=== PATIENT | male | born 1995 | race Hispanic/Latino ===

== ENCOUNTER 2020-08-20 03:21 | Observation (INO) | payer OTHER ==
[2020-08-20] MEDS ORDERED: ONDANSETRON 4 MG/2 ML INJ IV ONE (03:51)
[2020-08-20] MEDS ORDERED: SODIUM CHLORIDE 0.9% 1000 ML 1,000 ML IV ONE ×2 (03:51→05:47)
--- NOTE | 2020-08-20 03:57 | Emergency Department Report ---
HPI - General Chief Complaint: Medical Clearance Time Seen by Provider: 08/20/20 03:43 - HPI HPI: Room 24 The patient is a 25-year-old male present with a chief complaint of "depressive episode." The patient states he had a "depressive episode" which lead him to take ""many" shots of vodka. Patient states he took his normal psychiatric medication in addition to that he took 1 extra Effexor 75 mg stating that he thought it would make him feel happier. The patient states his friend called 911 because she was concerned about him. Patient denies suicidal ideation. Patient states he just wanted to "be out of the mental situation" he was then. When asked how he is feeling currently the patient states he just feels drunk but otherwise all right. ED Past Medical Hx - Past Medical History Previous Medical History?: Yes Hx Psychiatric Treatment: Yes (Anxiety, depression, OCD) Hx Asthma: Yes - Surgical History Past Surgical History?: No - Family History Family history: no significant - Social History Smoking Status: Never Smoker Substance Use Type: None (Denies illicit drug use), Alcohol (Occasional) ED Review of Systems ROS: Stated complaint: DRUG OD Other details as noted in HPI Constitutional: no symptoms reported Eyes: denies: eye pain ENT: denies: throat pain Respiratory: no symptoms reported Cardiovascular: denies: chest pain Endocrine: no symptoms reported Gastrointestinal: denies: abdominal pain Genitourinary: denies: dysuria Musculoskeletal: denies: back pain Neurological: denies: headache Psychiatric: depression. denies: suicidal thoughts Physical Exam - Physical Exam Vital Signs: Vital Signs 08/20/20 03:36 Temperature 98.1 F Pulse Rate 110 H Respiratory 20 Rate Blood Pressure 135/67 [Left] O2 Sat by Pulse 97 Oximetry Physical Exam: GENERAL: The patient is well-developed well-nourished male lying on stretcher not appearing to be in acute distress. [] HEENT: Normocephalic. Atraumatic. Extraocular motions are intact. Patient has moist mucous membranes. NECK: Supple. Trachea midline CHEST/LUNGS: Clear to auscultation. There is no respiratory distress noted. HEART/CARDIOVASCULAR: Regular. There is no tachycardia. There is no gallop rub or murmur. ABDOMEN: Abdomen is soft, nontender. Patient has normal bowel sounds. There is no abdominal distention. SKIN: There is no rash. There is no edema. There is no diaphoresis. NEURO: The patient is awake, alert, and oriented. The patient is cooperative. The patient has no focal neurologic deficits. The patient has normal speech MUSCULOSKELETAL: There is no evidence of acute injury. ED Course Vital Signs 08/20/20 03:36 Temperature 98.1 F Pulse Rate 110 H Respiratory 20 Rate Blood Pressure 135/67 [Left] O2 Sat by Pulse 97 Oximetry - Consultations Consultation #1: 08/20/20 05:13 Poison control called 08/20/20 05:35 Case discussed with poison control-given positive acetaminophen level with unknown time of ingestion they recommend for 21-hour treatment with Acetadote. Recommends drawing labs 3 hours prior to the completion of the third bag which includes acetaminophen level, AST, ALT and INR. They state in order to discontinue further Acetadote use the serum level should come back less than 10, AST and ALT should not be increasing and the INR should be less than 1.5 ED Medical Decision Making - Lab Data Result diagrams: 08/20/20 03:59 08/20/20 03:59 Laboratory Tests 08/20/20 08/20/20 08/20/20 03:59 03:59 03:59 WBC 8.7 RBC 4.38 Hgb 13.7 Hct 38.4 MCV 88 MCH 31 MCHC 36 H RDW 12.7 L Plt Count 248 Lymph % (Auto) 17.3 [place] % (Auto) 5.2 Eos % (Auto) 0.6 Baso % (Auto) 0.5 Lymph # (Auto) 1.5 [place] # (Auto) 0.5 Eos # (Auto) 0.1 Baso # (Auto) 0.0 Seg Neutrophils % 76.4 H Seg Neutrophils # 6.7 Sodium 141 Potassium 3.2 L Chloride 101.9 Carbon Dioxide 27 Anion Gap 15 BUN 9 Creatinine 0.9 Estimated GFR > 60 BUN/Creatinine Ratio 10 Glucose 123 H Calcium 10.3 H Total Bilirubin 0.20 AST 29 ALT 20 Alkaline Phosphatase 102 Total Protein 7.2 Albumin 4.8 Albumin/Globulin Ratio 2.0 Urine Color Urine Turbidity Urine pH Ur Specific [place] Urine Protein Urine Glucose (UA) Urine Ketones Urine Blood Urine Nitrite Urine Bilirubin Urine Urobilinogen Ur Leukocyte Esterase Urine WBC (Auto) Urine RBC (Auto) Salicylates < 0.3 L Urine Opiates Screen Urine Methadone Screen Acetaminophen Ur Barbiturates Screen Ur Phencyclidine Scrn Ur Amphetamines Screen U Benzodiazepines Scrn Urine Cocaine Screen U Marijuana (THC) Screen Drugs of Abuse Note Plasma/Serum Alcohol 08/20/20 08/20/20 08/20/20 03:59 03:59 04:33 WBC RBC Hgb Hct MCV MCH MCHC RDW Plt Count Lymph % (Auto) [place] % (Auto) Eos % (Auto) Baso % (Auto) Lymph # (Auto) [place] # (Auto) Eos # (Auto) Baso # (Auto) Seg Neutrophils % Seg Neutrophils # Sodium Potassium Chloride Carbon Dioxide Anion Gap BUN Creatinine Estimated GFR BUN/Creatinine Ratio Glucose Calcium Total Bilirubin AST ALT Alkaline Phosphatase Total Protein Albumin Albumin/Globulin Ratio Urine Color Colorless Urine Turbidity Clear Urine pH 7.0 Ur Specific [place] 1.001 L Urine Protein <15 mg/dl Urine Glucose (UA) Neg Urine Ketones Neg Urine Blood Neg Urine Nitrite Neg Urine Bilirubin Neg Urine Urobilinogen < 2.0 Ur Leukocyte Esterase Neg Urine WBC (Auto) < 1.0 Urine RBC (Auto) < 1.0 Salicylates Urine Opiates Screen Urine Methadone Screen Acetaminophen 15.1 Ur Barbiturates Screen Ur Phencyclidine Scrn Ur Amphetamines Screen U Benzodiazepines Scrn Urine Cocaine Screen U Marijuana (THC) Screen Drugs of Abuse Note Plasma/Serum Alcohol 0.11 H 08/20/20 04:33 WBC RBC Hgb Hct MCV MCH MCHC RDW Plt Count Lymph % (Auto) [place] % (Auto) Eos % (Auto) Baso % (Auto) Lymph # (Auto) [place] # (Auto) Eos # (Auto) Baso # (Auto) Seg Neutrophils % Seg Neutrophils # Sodium Potassium Chloride Carbon Dioxide Anion Gap BUN Creatinine Estimated GFR BUN/Creatinine Ratio Glucose Calcium Total Bilirubin AST ALT Alkaline Phosphatase Total Protein Albumin Albumin/Globulin Ratio Urine Color Urine Turbidity Urine pH Ur Specific [place] Urine Protein Urine Glucose (UA) Urine Ketones Urine Blood Urine Nitrite Urine Bilirubin Urine Urobilinogen Ur Leukocyte Esterase Urine WBC (Auto) Urine RBC (Auto) Salicylates Urine Opiates Screen Negative Urine Methadone Screen Negative Acetaminophen Ur Barbiturates Screen Negative Ur Phencyclidine Scrn Negative Ur Amphetamines Screen Negative U Benzodiazepines Scrn Negative Urine Cocaine Screen Negative U Marijuana (THC) Screen Negative Drugs of Abuse Note Disclamer Plasma/Serum Alcohol - EKG Data -: EKG Interpreted by Mn EKG shows normal: sinus rhythm Rate: normal - EKG Data When compared to previous EKG there are: previous EKG unavailable Interpretation: other (QRS 94, QTc 438) - Differential Diagnosis Alcohol intoxication, depression, suicidal gesture Critical care attestation.: If time is entered above; I have spent that time in minutes in the direct care of this critically ill patient, excluding procedure time. ED Disposition Clinical Impression: Depression, Overdose Disposition: DC-09 OP ADMIT IP TO THIS HOSP Is pt being admited?: Yes Does the pt Need Aspirin: No Condition: Fair Time of Disposition: 05:42 (Hospitalist notified (Dr iRbeiro))
[2020-08-20 04:24] LABS: Basophils % (Auto) 0.5 % (0.0-1.8); Eosinophils # (Auto) 0.1 K/mm3 (0.0-0.4); Eosinophils % (Auto) 0.6 % (0.0-4.3); Hematocrit 38.4 % (35.5-45.6); Hemoglobin 13.7 gm/dl (11.8-15.2); Lymphocytes # (Auto) 1.5 K/mm3 (1.2-5.4); Lymphocytes % (Auto) 17.3 % (13.4-35.0); Mean Corpuscular HGB Conc 36 % (32-34); Mean Corpuscular Volume 88 fl (84-94); Monocytes # (Auto) 0.5 K/mm3 (0.0-0.8); Monocytes % (Auto) 5.2 % (0.0-7.3); Platelet Count 248 K/mm3 (140-440); Red Blood Count 4.38 M/mm3 (3.65-5.03); Red Cell Distribution Width 12.7 % (13.2-15.2)
[2020-08-20 04:43] LABS: Alanine Aminotransferase 20 units/L (7-56); Albumin 4.8 g/dL (3.9-5); BUN/Creatinine Ratio 10; Blood Urea Nitrogen 9 mg/dL (9-20); Calcium 10.3 mg/dL (8.4-10.2); Hemolysis Index 2
[2020-08-20 05:01] LABS: Bilirubin,Urine NEG (Negative); Blood,Urine NEG (Negative); Color,Urine Colorless (Yellow); Protein,Urine <15 mg/dL mg/dL (Negative); RBC,Urine < 1.0 /HPF (0.0-6.0); Urobilinogen,Urine < 2.0 mg/dL (<2.0)
[2020-08-20 05:03] LABS: WBC,Urine < 1.0 /HPF (0.0-6.0)
[2020-08-20 05:10] LABS: Amphetamine Screen,Urine Negative; Benzodiazepines Screen,Urine Negative; Cannabinoid Screen,Urine Negative; Cocaine Screen,Urine Negative; Methadone Screen,Urine Negative; Opiate Screen,Urine Negative
[2020-08-20] MEDS ORDERED: POTASSIUM CHLORIDE ER 20 MEQ TAB PO ONE (05:56)
[2020-08-20] MEDS ORDERED: POTASSIUM CHLORIDE 10 MEQ 10 MEQ/100 ML BAG IV SCH (06:00)
[2020-08-20] MEDS ORDERED: ACETADOTE IV ONE ×3 (06:00→11:00)
[2020-08-20] MEDS ORDERED: DEXTROSE 5% IV ONE ×3 (06:00→11:00)
[2020-08-20] MEDS ORDERED: WATER IV ONE ×3 (06:00→11:00)
--- NOTE | 2020-08-20 07:10 | History and Physical Report ---
History of Present Illness Date of examination: 08/20/20 Date of admission: 08/20/20 05:53 Chief complaint: Drug overdose History of present illness: Patient is a 25-year-old male with past medical history of depression who presented to the ED following a depressive episode but the patient reported that he took 1 too many shots reportedly vodka. He also reported taking extra doses of his antidepressant medication. While he told the ER that he felt it was making "happy" he tells me that it was due to his depression but that he was not suicidal or homicidal. He states that he is feeling better would like to go home. He states that it was his roommate/friend who called 911 because she was concerned about him. In the ER poison control was notified and the patient was started on Acetadote IV orders, initial LFTs findings were within normal limits. He is awaiting psych evaluation. Past History Past Medical History: other (depression) Past Surgical History: Other Social history: alcohol abuse, full code, other (drug abuse) Family history: no significant family history Medications and Allergies Allergies Allergy/AdvReac Type Severity Reaction Status Date / Time No Known Allergies Allergy Unverified 08/20/20 03:38 Active Meds: Active Medications Acetaminophen (Acetaminophen 325 Mg Tab) 650 mg PO Q4H PRN PRN Reason: Pain MILD(1-3)/Fever >100.5/TURNER Albuterol (Albuterol 2.5 Mg/3 Ml Nebu) 2.5 mg IH Q4HRT PRN PRN Reason: Shortness Of Breath Docusate Sodium (Docusate Sodium 100 Mg Cap) 100 mg PO BID DAMI Famotidine (Famotidine 20 Mg/2 Ml Inj) 20 mg IV BID DAMI Acetylcysteine 3,050 mg/ (Dextrose) 515.25 mls @ 128.813 mls/hr IV ONCE ONE Stop: 08/20/20 10:59 Acetylcysteine 6,100 mg/ (Dextrose) 1,030.5 mls @ 64.406 mls/hr IV DIRECT ONE Stop: 08/21/20 02:59 Morphine Sulfate (Morphine 2 Mg/1 Ml Inj) 2 mg IV Q4H PRN PRN Reason: Pain, Moderate (4-6) Ondansetron HCl (Ondansetron 4 Mg/2 Ml Inj) 4 mg IV Q4H PRN PRN Reason: Nausea And Vomiting Sodium Chloride (Sodium Chloride 0.9% 10 Ml Flush Syringe) 10 ml IV BID DAMI Sodium Chloride (Sodium Chloride 0.9% 10 Ml Flush Syringe) 10 ml IV PRN PRN PRN Reason: LINE FLUSH Review of Systems Constitutional: fatigue, weakness, malaise Cardiovascular: orthopnea, palpitations, no shortness of breath Respiratory: no cough, no excessive sputum, no dyspnea on exertion Gastrointestinal: no abdominal pain, no nausea, no vomiting, no diarrhea, no change in bowel habits, no hematemesis, no coffee ground emesis, no melena, no hematochezia, no loss of appetite, no heartburn, no excessive gas, no dyspepsia/bloating Integumentary: no pruritis, no wounds Neurological: no paralysis, no weakness, no parathesias, no numbness, no tingling, no syncope, no tremors, no vertigo, no headaches, no migraines, no convulsions, no confusion, no memory loss, no changes in smell/taste, no sensory deficit Psychiatric: depression Exam - Physical Exam Narrative exam: VITAL SIGNS: Reviewed. GENERAL: The patient appears normally developed, Vital signs as documented. HEAD: No signs of head trauma. EYES: Pupils are equal. Extraocular motions intact. EARS: Hearing grossly intact. MOUTH: Oropharynx is normal. NECK: No adenopathy, no JVD. CHEST: Chest with clear breath sounds bilaterally. No wheezes, rales, or rh onchi. CARDIAC: Regular rate and rhythm. S1 and S2, without murmurs, gallops, or rubs. VASCULAR: No Edema. Peripheral pulses normal and equal in all extremities. ABDOMEN: Soft, non tender and non distended. No rebound or guarding, and no masses palpated. Bowel Sounds normal. MUSCULOSKELETAL: Good range of motion of all major joints. Extremities without clubbing, cyanosis or edema. NEUROLOGIC EXAM: Alert and oriented x 3 No focal sensory or strength deficits. Speech normal. Follows commands. PSYCHIATRIC: Mood normal. SKIN: detail exam as documented in skin assessment - Constitutional Vitals: Temp Pulse Resp BP Pulse Ox 98.1 F 100 H 20 135/67 95 08/20/20 03:36 08/20/20 04:46 08/20/20 04:46 08/20/20 04:46 08/20/20 04:46 Results - Labs CBC & Chem 7: 08/20/20 03:59 08/20/20 03:59 Labs: Laboratory Last Values WBC 8.7 K/mm3 (4.5-11.0) 08/20/20 03:59 RBC 4.38 M/mm3 (3.65-5.03) 08/20/20 03:59 Hgb 13.7 gm/dl (11.8-15.2) 08/20/20 03:59 Hct 38.4 % (35.5-45.6) 08/20/20 03:59 MCV 88 fl (84-94) 08/20/20 03:59 MCH 31 pg (28-32) 08/20/20 03:59 MCHC 36 % (32-34) H 08/20/20 03:59 RDW 12.7 % (13.2-15.2) L 08/20/20 03:59 Plt Count 248 K/mm3 (140-440) 08/20/20 03:59 Lymph % (Auto) 17.3 % (13.4-35.0) 08/20/20 03:59 [place] % (Auto) 5.2 % (0.0-7.3) 08/20/20 03:59 Eos % (Auto) 0.6 % (0.0-4.3) 08/20/20 03:59 Baso % (Auto) 0.5 % (0.0-1.8) 08/20/20 03:59 Lymph # (Auto) 1.5 K/mm3 (1.2-5.4) 08/20/20 03:59 [place] # (Auto) 0.5 K/mm3 (0.0-0.8) 08/20/20 03:59 Eos # (Auto) 0.1 K/mm3 (0.0-0.4) 08/20/20 03:59 Baso # (Auto) 0.0 K/mm3 (0.0-0.1) 08/20/20 03:59 Seg Neutrophils % 76.4 % (40.0-70.0) H 08/20/20 03:59 Seg Neutrophils # 6.7 K/mm3 (1.8-7.7) 08/20/20 03:59 Sodium 141 mmol/L (137-145) 08/20/20 03:59 Potassium 3.2 mmol/L (3.6-5.0) L 08/20/20 03:59 Chloride 101.9 mmol/L (98-107) 08/20/20 03:59 Carbon Dioxide 27 mmol/L (22-30) 08/20/20 03:59 Anion Gap 15 mmol/L 08/20/20 03:59 BUN 9 mg/dL (9-20) 08/20/20 03:59 Creatinine 0.9 mg/dL (0.8-1.3) 08/20/20 03:59 Estimated GFR > 60 ml/min 08/20/20 03:59 BUN/Creatinine Ratio 10 % 08/20/20 03:59 Glucose 123 mg/dL (75-100) H 08/20/20 03:59 Calcium 10.3 mg/dL (8.4-10.2) H 08/20/20 03:59 Magnesium 2.30 mg/dL (1.7-2.3) 08/20/20 03:59 Total Bilirubin 0.20 mg/dL (0.1-1.2) 08/20/20 03:59 AST 29 units/L (5-40) 08/20/20 03:59 ALT 20 units/L (7-56) 08/20/20 03:59 Alkaline Phosphatase 102 units/L (35-129) 08/20/20 03:59 Total Protein 7.2 g/dL (6.3-8.2) 08/20/20 03:59 Albumin 4.8 g/dL (3.9-5) 08/20/20 03:59 Albumin/Globulin Ratio 2.0 % 08/20/20 03:59 Urine Color Colorless (Yellow) 08/20/20 04:33 Urine Turbidity Clear (Clear) 08/20/20 04:33 Urine pH 7.0 (5.0-7.0) 08/20/20 04:33 Ur Specific [place] 1.001 (1.003-1.030) L 08/20/20 04:33 Urine Protein <15 mg/dl mg/dL (Negative) 08/20/20 04:33 Urine Glucose (UA) Neg mg/dL (Negative) 08/20/20 04:33 Urine Ketones Neg mg/dL (Negative) 08/20/20 04:33 Urine Blood Neg (Negative) 08/20/20 04:33 Urine Nitrite Neg (Negative) 08/20/20 04:33 Urine Bilirubin Neg (Negative) 08/20/20 04:33 Urine Urobilinogen < 2.0 mg/dL (<2.0) 08/20/20 04:33 Ur Leukocyte Esterase Neg (Negative) 08/20/20 04:33 Urine WBC (Auto) < 1.0 /HPF (0.0-6.0) 08/20/20 04:33 Urine RBC (Auto) < 1.0 /HPF (0.0-6.0) 08/20/20 04:33 Salicylates < 0.3 mg/dL (2.8-20.0) L 08/20/20 03:59 Urine Opiates Screen Negative 08/20/20 04:33 Urine Methadone Screen Negative 08/20/20 04:33 Acetaminophen 15.1 ug/mL (10.0-30.0) 08/20/20 03:59 Ur Barbiturates Screen Negative 08/20/20 04:33 Ur Phencyclidine Scrn Negative 08/20/20 04:33 Ur Amphetamines Screen Negative 08/20/20 04:33 U Benzodiazepines Scrn Negative 08/20/20 04:33 Urine Cocaine Screen Negative 08/20/20 04:33 U Marijuana (THC) Screen Negative 08/20/20 04:33 Drugs of Abuse Note Disclamer 08/20/20 04:33 Plasma/Serum Alcohol 0.11 % (0-0.07) H 08/20/20 03:59 Assessment and Plan Assessment and plan: Patient is a 25-year-old male with past medical history of depression who presented to the ED following a depressive episode but the patient reported that he took 1 too many shots reportedly vodka. He also reported taking extra doses of his antidepressant medication. While he told the ER that he felt it was making "happy" he tells me that it was due to his depression but that he was not suicidal or homicidal. He states that he is feeling better would like to go home. He states that it was his roommate/friend who called 911 because she was concerned about him. In the ER poison control was notified and the patient was started on Acetadote IV orders, initial LFTs findings were within normal limits. He is awaiting psych evaluation. Alcohol intoxication, Depression Suicidal gesture although no suicidal ideation homicidal ideation reported by the patient. Hypokalemia Plan Continue Acetadote as recommended Admit patient to observation Case discussed with poison control-given positive acetaminophen level with unknown time of ingestion they recommend for 21-hour treatment with Acetadote. Recommends drawing labs 3 hours prior to the completion of the third bag which includes acetaminophen level, AST, ALT and INR. They state in order to discontinue further Acetadote use the serum level should come back less than 10, AST and ALT should not be increasing and the INR should be less than 1.5 Replace electrolytes including hypokalemia [facility] protocol Extensive counseling 15 minutes on need to quit alcohol use. DVT and GI prophylaxis Advance Directives: Yes Plan of care discussed with patient/family: Yes
[2020-08-20] MEDS ORDERED: MORPHINE 2 MG/1 ML INJ IV PRN (07:30)
[2020-08-20] MEDS ORDERED: ACETAMINOPHEN 325 MG TAB PO PRN (07:30)
[2020-08-20] MEDS ORDERED: LORazepam 2 MG/ML VIAL IV PRN ×2 (07:30)
[2020-08-20] MEDS ORDERED: ONDANSETRON 4 MG/2 ML INJ IV PRN (07:30)
[2020-08-20] MEDS ORDERED: ALBUTEROL 2.5 MG/3 ML NEBU IH PRN (08:00)
--- NOTE | 2020-08-20 10:14 | Consultation ---
History of Present Illness - Reason for Consult Consult date: 08/20/20 Reason for consult: MHE Requesting physician: AMANDA LEVI - Chief Complaint Chief complaint: Drug overdose - History of Present Psychiatric Illness PSYCH HPI Patient is a 25-year-old single unemployed male with past psychiatric history of OCD, depression and anxiety and past medical history of asthma who presented to the ED with chief complaint of overdose on home medication. Patient reported currently living in shared space with his ex and are currently going through separation, recently observed her throwing old gifts away and this made him upset so he started drinking and then took some more of his effexor 75 mg medications due to his depression. Patient says he was not suicidal but admits to similar incident 2 years with same person prompting admission and mental health stabilization. PAST PSYCHIATRIC HISTORY Diagnoses: OCD, depression and anxiety Suicide attempts or Self-harm behavior: Yes Prior psychiatric hospitalizations: Yes Substance Abuse history: Alcohol Previous psychiatric medications tried: Effexor Outpatient treatment: Yes PAST MEDICAL HISTORY: Asthma Family Psychiatric History: None reported or documented SOCIAL HISTORY Marital Status: Single Living Arrangements: Renting Employment Status: Employed Access to guns/weapons: None report Education: High school History of Abuse: Emotional Legal History: None REVIEW OF SYSTEMS Constitutional: Negative for weight loss ENT: Negative for stridor Respiratory: Negative for cough or hemoptysis All other systems reviewed and are negative MENTAL STATUS EXAMINATION General Appearance and Behavior: Age appropriate, good hygiene, wearing appropriate clothes, good eye contact, cooperative polite with questioning. Cooperation: Participating/engaged Psychomotor Behavior: unremarkable and within normal limits Mood: Good Affect and affective range: congruent with mood Thought Process: Fluent/Logical, Thought Content: Within reality, Speech: Normal volume, Regular rate and rhythm, Intellectual Functioning: Average Suicidal Ideation: Denies SI Homicidal Ideation: Denies HI Impulse Control: Unimpaired Insight and Judgment: Normal insight and judgment, Memory: Normal, Attention: Normal, Orientation: Alert, oriented, Assessment and Plan - Psychiatric problem (1) MDD (major depressive disorder) Current Visit: Yes Status: Acute Treatment Plan Repeated pattern of high risk/suicidal behavior. I recommend intervention at this time after medical clearance MEDICATIONS: Risks, benefits and alternatives of medications discussed with the patient, questions answered and consent obtained from patient. PSYCHOTHERAPY: Supportive psychotherapy provided MEDICAL: Per primary team DELIRIUM PRECAUTIONS: Please re-orient patient frequently, keep lights on during the day, and minimize benzodiazepines and opiates as these medications could worsen patient's confusion. 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 Case discussed with Dr. Glover who agrees with current disposition LEGAL STATUS: 1013 FOLLOW-UP: Will follow Thank you for the consult. Please contact with any questions and/or concerns. Medications and Allergies Allergies Allergy/AdvReac Type Severity Reaction Status Date / Time No Known Allergies Allergy Unverified 08/20/20 03:38 Active Meds: Active Medications Acetaminophen (Acetaminophen 325 Mg Tab) 650 mg PO Q4H PRN PRN Reason: Pain MILD(1-3)/Fever >100.5/TURNER Albuterol (Albuterol 2.5 Mg/3 Ml Nebu) 2.5 mg IH Q4HRT PRN PRN Reason: Shortness Of Breath Docusate Sodium (Docusate Sodium 100 Mg Cap) 100 mg PO BID DAMI Famotidine (Famotidine 20 Mg/2 Ml Inj) 20 mg IV BID DAMI Acetylcysteine 3,050 mg/ (Dextrose) 515.25 mls @ 128.813 mls/hr IV ONCE ONE Stop: 08/20/20 10:59 Last Admin: 08/20/20 07:48 Dose: 128.813 mls/hr Documented by: Acetylcysteine 6,100 mg/ (Dextrose) 1,030.5 mls @ 64.406 mls/hr IV DIRECT ONE Stop: 08/21/20 02:59 Folic Acid 1 mg/ Multivitamins /Minerals 10 ml/ Thiamine HCl 100 mg/ Sodium Chloride 1,000 mls @ 125 mls/hr IV .BY DURATION DAMI Sodium Chloride (Nacl 0.9% 1000 Ml) 1,000 mls @ 125 mls/hr IV .BY DURATION DAMI Lorazepam (Lorazepam 2 Mg/Ml Vial) 2 mg IV Q1HR PRN PRN Reason: CIWA-Ar 8-15 Lorazepam (Lorazepam 2 Mg/Ml Vial) 4 mg IV Q1HR PRN PRN Reason: CIWA-Ar 16-25 Morphine Sulfate (Morphine 2 Mg/1 Ml Inj) 2 mg IV Q4H PRN PRN Reason: Pain, Moderate (4-6) Ondansetron HCl (Ondansetron 4 Mg/2 Ml Inj) 4 mg IV Q4H PRN PRN Reason: Nausea And Vomiting Sodium Chloride (Sodium Chloride 0.9% 10 Ml Flush Syringe) 10 ml IV BID DAMI Sodium Chloride (Sodium Chloride 0.9% 10 Ml Flush Syringe) 10 ml IV PRN PRN PRN Reason: LINE FLUSH Mental Status Exam - Vital signs Last Vital Signs Temp 98.1 F 08/20/20 03:36 Pulse 101 H 08/20/20 07:30 Resp 19 08/20/20 07:30 BP 145/92 08/20/20 09:10 Pulse Ox 98 08/20/20 10:08 Results Result Diagrams: 08/20/20 03:59 08/20/20 03:59 Abnormal lab results 08/20/20 08/20/20 08/20/20 Range/Units 03:59 03:59 03:59 MCHC 36 H (32-34) % RDW 12.7 L (13.2-15.2) % Seg Neutrophils % 76.4 H (40.0-70.0) % Potassium 3.2 L (3.6-5.0) mmol/L Glucose 123 H (75-100) mg/dL Calcium 10.3 H (8.4-10.2) mg/dL Ammonia (25-60) umol/L Ur Specific [place] (1.003-1.030) Salicylates < 0.3 L (2.8-20.0) mg/dL Plasma/Serum Alcohol (0-0.07) % 08/20/20 08/20/20 08/20/20 Range/Units 03:59 04:33 07:27 MCHC (32-34) % RDW (13.2-15.2) % Seg Neutrophils % (40.0-70.0) % Potassium (3.6-5.0) mmol/L Glucose (75-100) mg/dL Calcium (8.4-10.2) mg/dL Ammonia 20.0 L (25-60) umol/L Ur Specific [place] 1.001 L (1.003-1.030) Salicylates (2.8-20.0) mg/dL Plasma/Serum Alcohol 0.11 H (0-0.07) % All other labs normal. Assessment and Plan - Psychiatric problem (1) MDD (major depressive disorder) Current Visit: Yes Status: Acute
[2020-08-20] MEDS: 1: FOLIC ACID 1 MG, MULTIPLE VITAMIN INJ, ADULT 10 ML, THIAMINE 100 MG in SODIUM CHLORID IV SCH ×2 (12:30→20:11)
[2020-08-20 13:28] LABS: Alanine Aminotransferase 16 units/L (7-56); Albumin 4.4 g/dL (3.9-5)
[2020-08-20 13:31] LABS: Bilirubin,Direct < 0.2 mg/dL (0-0.2)
[2020-08-20] MEDS: DOCUSATE SODIUM 100 MG CAP PO SCH ×2 (18:02→22:09)
[2020-08-20] MEDS: FAMOTIDINE 20 MG/2 ML INJ IV SCH ×2 (18:02→22:10)
[2020-08-20] MEDS ORDERED: SODIUM CHLORIDE 0.9% 1000 ML 1,000 ML IV SCH (20:00)
[2020-08-21 00:54] LABS: Alanine Aminotransferase 15 units/L (7-56); Albumin 4.1 g/dL (3.9-5); BUN/Creatinine Ratio 9; Blood Urea Nitrogen 6 mg/dL (9-20); Calcium 8.6 mg/dL (8.4-10.2); Hemolysis Index 10
[2020-08-21] MEDS: 1: FOLIC ACID 1 MG, MULTIPLE VITAMIN INJ, ADULT 10 ML, THIAMINE 100 MG in SODIUM CHLORID IV SCH ×2 (03:41→11:48)
[2020-08-21 05:43] LABS: Basophils # (Auto) 0.1 K/mm3 (0.0-0.1); Basophils % (Auto) 1.4 % (0.0-1.8); Eosinophils # (Auto) 0.3 K/mm3 (0.0-0.4); Eosinophils % (Auto) 4.3 % (0.0-4.3); Hematocrit 37.8 % (35.5-45.6); Hemoglobin 13.3 gm/dl (11.8-15.2); Lymphocytes # (Auto) 2.5 K/mm3 (1.2-5.4); Lymphocytes % (Auto) 41.8 % (13.4-35.0); Mean Corpuscular HGB Conc 35 % (32-34); Mean Corpuscular Volume 88 fl (84-94); Monocytes # (Auto) 0.5 K/mm3 (0.0-0.8); Monocytes % (Auto) 7.7 % (0.0-7.3); Platelet Count 231 K/mm3 (140-440); Red Blood Count 4.28 M/mm3 (3.65-5.03)
[2020-08-21 06:11] LABS: Alanine Aminotransferase 14 units/L (7-56); Albumin 3.9 g/dL (3.9-5); Bilirubin,Direct < 0.2 mg/dL (0-0.2)
--- NOTE | 2020-08-21 06:59 | Progress Note ---
Subjective - Reason for Consult Consult date: 08/21/20 Reason for consult: MHE Requesting physician: AMANDA LEVI - Chief Complaint Chief complaint: Psych progress patient seen this a.m., patient reported doing okay, endorses speaking with his mom had a conversation that went well and that she is currently away easily hospital. Patient reported he did not speak with his ex. denies any acute complaints at this moment. Patient still undergoing medical care and not yet cleared for psych admission REVIEW OF SYSTEMS Constitutional: Negative for weight loss ENT: Negative for stridor Respiratory: Negative for cough or hemoptysis All other systems reviewed and are negative MENTAL STATUS EXAMINATION General Appearance and Behavior: Age appropriate, good hygiene, wearing appropriate clothes, good eye contact, cooperative polite with questioning. Cooperation: Participating/engaged Psychomotor Behavior: unremarkable and within normal limits Mood: Good Affect and affective range: congruent with mood Thought Process: Fluent/Logical, Thought Content: Within reality, Speech: Normal volume, Regular rate and rhythm, Intellectual Functioning: Average Suicidal Ideation: Denies SI Homicidal Ideation: Denies HI Impulse Control: Unimpaired Insight and Judgment: Normal insight and judgment, Memory: Normal, Attention: Normal, Orientation: Alert, oriented, Assessment and Plan - Psychiatric problem (1) MDD (major depressive disorder) Current Visit: Yes Status: Acute Treatment Plan Repeated pattern of high risk/suicidal behavior. I recommend intervention at this time after medical clearance MEDICATIONS: Risks, benefits and alternatives of medications discussed with the patient, questions answered and consent obtained from patient. PSYCHOTHERAPY: Supportive psychotherapy provided MEDICAL: Per primary team DELIRIUM PRECAUTIONS: Please re-orient patient frequently, keep lights on during the day, and minimize benzodiazepines and opiates as these medications could worsen patient's confusion. 911 DISPATCHER: DISPOSITION: Do Recommend acute inpatient psychiatric hospitalization at this time. Case discussed with Dr. Glover who agrees with current disposition LEGAL STATUS: 1013 FOLLOW-UP: Will follow Thank you for the consult. Please contact with any questions and/or concerns. Mental Status Exam - Vital signs Last Vital Signs Temp 98.6 F 08/21/20 03:48 Pulse 68 08/21/20 03:48 Resp 18 08/20/20 23:13 BP 121/68 08/21/20 03:48 Pulse Ox 94 08/20/20 23:13 Assessment and Plan - Patient Problems (1) MDD (major depressive disorder) Current Visit: Yes Status: Acute
[2020-08-21] MEDS: FAMOTIDINE 20 MG/2 ML INJ IV SCH (10:09)
[2020-08-21] MEDS: DOCUSATE SODIUM 100 MG CAP PO SCH (10:09)
--- NOTE | 2020-08-21 11:14 | Progress Note ---
Assessment and Plan Assessment and plan: Patient is a 25-year-old male with past medical history of depression who presented to the ED following a depressive episode but the patient reported that he took 1 too many shots reportedly vodka. He also reported taking extra doses of his antidepressant medication. While he told the ER that he felt it was making "happy" he tells me that it was due to his depression but that he was not suicidal or homicidal. He states that he is feeling better would like to go home. He states that it was his roommate/friend who called 911 because she was concerned about him. In the ER poison control was notified and the patient was started on Acetadote IV orders, initial LFTs findings were within normal limits. He is awaiting psych evaluation. Alcohol intoxication, Major depression disorder Suicidal gesture although no suicidal ideation homicidal ideation reported by the patient. Hypokalemia Plan 08/21: Patient completed Acetadote as recommended no further bags per poison control. Hypokalemia has resolved. Psych input is noted and is required due to repeated pattern secondary to major depression. Patient currently is medically cleared for inpatient psych management. Patient was treated per poison control protocol Case discussed with poison control-given positive acetaminophen level with unknown time of ingestion they recommend for 21-hour treatment with Acetadote. Recommends drawing labs 3 hours prior to the completion of the third bag which includes acetaminophen level, AST, ALT and INR. They state in order to discontinue further Acetadote use the serum level should come back less than 10, AST and ALT should not be increasing and the INR should be less than 1.5 Replace electrolytes including hypokalemia [facility] protocol Extensive counseling 15 minutes on need to quit alcohol use. DVT and GI prophylaxis History Interval history: Patient seen and examined today no new complaints. No nausea vomiting abdominal pain Hospitalist Physical - Physical exam Narrative exam: VITAL SIGNS: Reviewed. GENERAL: The patient appears normally developed, Vital signs as documented. HEAD: No signs of head trauma. EYES: Pupils are equal. Extraocular motions intact. EARS: Hearing grossly intact. MOUTH: Oropharynx is normal. NECK: No adenopathy, no JVD. CHEST: Chest with clear breath sounds bilaterally. No wheezes, rales, or rhonchi. CARDIAC: Regular rate and rhythm. S1 and S2, without murmurs, gallops, or rubs. VASCULAR: No Edema. Peripheral pulses normal and equal in all extremities. ABDOMEN: Soft, non tender and non distended. No rebound or guarding, and no masses palpated. Bowel Sounds normal. MUSCULOSKELETAL: Good range of motion of all major joints. Extremities without clubbing, cyanosis or edema. NEUROLOGIC EXAM: Alert and oriented x 3 No focal sensory or strength deficits. Speech normal. Follows commands. PSYCHIATRIC: Mood normal. SKIN: detail exam as documented in skin assessment - Constitutional Vitals: Temp Pulse Resp BP Pulse Ox 98.3 F 78 18 116/77 99 08/21/20 07:10 08/21/20 07:10 08/21/20 07:10 08/21/20 07:10 08/21/20 09:00 Results - Labs CBC & Chem 7: 08/21/20 05:19 08/21/20 00:16 Labs: Laboratory Last Values WBC 6.0 K/mm3 (4.5-11.0) 08/21/20 05:19 RBC 4.28 M/mm3 (3.65-5.03) 08/21/20 05:19 Hgb 13.3 gm/dl (11.8-15.2) 08/21/20 05:19 Hct 37.8 % (35.5-45.6) 08/21/20 05:19 MCV 88 fl (84-94) 08/21/20 05:19 MCH 31 pg (28-32) 08/21/20 05:19 MCHC 35 % (32-34) H 08/21/20 05:19 RDW 13.0 % (13.2-15.2) L 08/21/20 05:19 Plt Count 231 K/mm3 (140-440) 08/21/20 05:19 Lymph % (Auto) 41.8 % (13.4-35.0) H 08/21/20 05:19 [place] % (Auto) 7.7 % (0.0-7.3) H 08/21/20 05:19 Eos % (Auto) 4.3 % (0.0-4.3) 08/21/20 05:19 Baso % (Auto) 1.4 % (0.0-1.8) 08/21/20 05:19 Lymph # (Auto) 2.5 K/mm3 (1.2-5.4) 08/21/20 05:19 [place] # (Auto) 0.5 K/mm3 (0.0-0.8) 08/21/20 05:19 Eos # (Auto) 0.3 K/mm3 (0.0-0.4) 08/21/20 05:19 Baso # (Auto) 0.1 K/mm3 (0.0-0.1) 08/21/20 05:19 Seg Neutrophils % 44.8 % (40.0-70.0) 08/21/20 05:19 Seg Neutrophils # 2.7 K/mm3 (1.8-7.7) 08/21/20 05:19 PT 13.8 Sec. (12.2-14.9) 08/21/20 00:16 INR 1.00 (0.87-1.13) 08/21/20 00:16 Sodium 141 mmol/L (137-145) 08/21/20 00:16 Potassium 4.3 mmol/L (3.6-5.0) D 08/21/20 00:16 Chloride 106.8 mmol/L (98-107) 08/21/20 00:16 Carbon Dioxide 27 mmol/L (22-30) 08/21/20 00:16 Anion Gap 12 mmol/L 08/21/20 00:16 BUN 6 mg/dL (9-20) L 08/21/20 00:16 Creatinine 0.7 mg/dL (0.8-1.3) L 08/21/20 00:16 Estimated GFR > 60 ml/min 08/21/20 00:16 BUN/Creatinine Ratio 9 % 08/21/20 00:16 Glucose 98 mg/dL (75-100) 08/21/20 00:16 POC Glucose 89 mg/dL (70-105) 08/21/20 07:44 Calcium 8.6 mg/dL (8.4-10.2) D 08/21/20 00:16 Magnesium 2.30 mg/dL (1.7-2.3) 08/20/20 03:59 Total Bilirubin 0.60 mg/dL (0.1-1.2) 08/21/20 05:19 Direct Bilirubin < 0.2 mg/dL (0-0.2) 08/21/20 05:19 Indirect Bilirubin Bufferer 08/21/20 05:19 AST 17 units/L (5-40) 08/21/20 05:19 ALT 14 units/L (7-56) 08/21/20 05:19 Alkaline Phosphatase 84 units/L (35-129) 08/21/20 05:19 Ammonia 20.0 umol/L (25-60) L 08/20/20 07:27 Total Protein 6.2 g/dL (6.3-8.2) L 08/21/20 05:19 Albumin 3.9 g/dL (3.9-5) 08/21/20 05:19 Albumin/Globulin Ratio 1.7 % 08/21/20 05:19 Urine Color Colorless (Yellow) 08/20/20 04:33 Urine Turbidity Clear (Clear) 08/20/20 04:33 Urine pH 7.0 (5.0-7.0) 08/20/20 04:33 Ur Specific [place] 1.001 (1.003-1.030) L 08/20/20 04:33 Urine Protein <15 mg/dl mg/dL (Negative) 08/20/20 04:33 Urine Glucose (UA) Neg mg/dL (Negative) 08/20/20 04:33 Urine Ketones Neg mg/dL (Negative) 08/20/20 04:33 Urine Blood Neg (Negative) 08/20/20 04:33 Urine Nitrite Neg (Negative) 08/20/20 04:33 Urine Bilirubin Neg (Negative) 08/20/20 04:33 Urine Urobilinogen < 2.0 mg/dL (<2.0) 08/20/20 04:33 Ur Leukocyte Esterase Neg (Negative) 08/20/20 04:33 Urine WBC (Auto) < 1.0 /HPF (0.0-6.0) 08/20/20 04:33 Urine RBC (Auto) < 1.0 /HPF (0.0-6.0) 08/20/20 04:33 Salicylates < 0.3 mg/dL (2.8-20.0) L 08/20/20 03:59 Urine Opiates Screen Negative 08/20/20 04:33 Urine Methadone Screen Negative 08/20/20 04:33 Acetaminophen 5.0 ug/mL (10.0-30.0) L 08/21/20 05:19 Ur Barbiturates Screen Negative 08/20/20 04:33 Ur Phencyclidine Scrn Negative 08/20/20 04:33 Ur Amphetamines Screen Negative 08/20/20 04:33 U Benzodiazepines Scrn Negative 08/20/20 04:33 Urine Cocaine Screen Negative 08/20/20 04:33 U Marijuana (THC) Screen Negative 08/20/20 04:33 Drugs of Abuse Note Disclamer 08/20/20 04:33 Plasma/Serum Alcohol 0.11 % (0-0.07) H 08/20/20 03:59 Roberto/IV: Voiding Method Toilet Active Medications - Current Medications Current Medications: Generic Name Dose Route Start Last Admin Trade Name Freq PRN Reason Stop Dose Admin Albuterol 2.5 mg 08/20/20 08:00 Albuterol 2.5 Mg/3 Ml Nebu IH Q4HRT PRN Shortness Of Breath Docusate Sodium 100 mg 08/20/20 10:00 08/21/20 10:09 Docusate Sodium 100 Mg Cap PO 100 mg BID DAMI Administration Famotidine 20 mg 08/20/20 10:00 08/21/20 10:09 Famotidine 20 Mg/2 Ml Inj IV 20 mg BID DAMI Administration Folic Acid 1 mg/ Multivitamins 1,000 mls @ 125 mls/hr 08/20/20 08:00 08/20/20 12:30 /Minerals 10 ml/ Thiamine HCl IV 125 mls/hr 100 mg/ Sodium Chloride .BY DURATION DAMI Administration Sodium Chloride 1,000 mls @ 125 mls/hr 08/20/20 08:00 08/21/20 03:41 Nacl 0.9% 1000 Ml IV 125 mls/hr .BY DURATION DAMI Administration Sodium Chloride 1,000 mls @ 125 mls/hr 08/20/20 20:00 Nacl 0.9% 1000 Ml IV DIRECT DAMI Lorazepam 2 mg 08/20/20 07:30 Lorazepam 2 Mg/Ml Vial IV Q1HR PRN CIWA-Ar 8-15 Lorazepam 4 mg 08/20/20 07:30 Lorazepam 2 Mg/Ml Vial IV Q1HR PRN CIWA-Ar 16-25 Morphine Sulfate 2 mg 08/20/20 07:30 Morphine 2 Mg/1 Ml Inj IV Q4H PRN Pain, Moderate (4-6) Ondansetron HCl 4 mg 08/20/20 07:30 Ondansetron 4 Mg/2 Ml Inj IV Q4H PRN Nausea And Vomiting Sodium Chloride 10 ml 08/20/20 10:00 08/21/20 10:09 Sodium Chloride 0.9% 10 Ml Flush Syringe IV 10 ml BID DAMI Administration Sodium Chloride 10 ml 08/20/20 07:06 Sodium Chloride 0.9% 10 Ml Flush Syringe IV PRN PRN LINE FLUSH Nutrition/Malnutrition Assess - Dietary Evaluation Nutrition/Malnutrition Findings: Nutrition Notes Start: 08/20/20 12:19 Freq: Status: Active Protocol: Document 08/20/20 12:19 LM (Rec: 08/20/20 12:25 LM [id number]) Nutrition Notes Need for Assessment generated from: Low BMI Initial or Follow up Assessment Other Pertinent Diagnosis OD, depression Current Diet Regular Labs/Tests K 3.2 Pertinent Medications Reviewed Height 6 ft Weight 61 kg Usual Body Weight 59 kg [place] Body Weight (kg) 80.90 BMI 18.2 Weight Status Underweight Subjective/Other Information Low BMI screen. Pt stated he was eating well [employer]. Pt stated he only ate the bread for breakfast due to not liking the food. Pt does not like grits or the eggs. Pt denied wt change, stated his UBW is 59 kg (130 lb). Pt denied N/V/ D/C. Pt had no muscle or fat wasting. Pt refused ONS. Burn Absent Trauma Absent GI Symptoms None Current % PO Poor (25-49%) Minimum of two criteria No physical signs of malnutrition #1 Nutrition Diagnosis Inadequate oral intake Etiology Dislikes food prvided As Evidenced by Signs and Symptoms Pt ate < 25% of breakfast Is patient on ventilator? No Is Patient Ambulatory and/or Out of Bed Yes REE-([place]-St. Jeor-ambulatory/OOB) [ 2135.900 [id number]] Calculation Used for Recommendations [place]-St Jeor Additional Notes Protein: 49-61g (0.8-1g/kg using ABW) Fluid: 1ml/kcal Nutrition Intervention Change Diet Order: Continue regular diet Goal #1 Meet at least 75% of energy and protein needs Anticipated Discharge Needs: Regular diet Follow-Up By: 08/24/20 Additional Comments F/U for PO intakes
--- NOTE | 2020-08-21 14:57 | Discharge Summary ---
Providers - Providers Date of Admission: 08/20/20 05:53 Attending physician: AMANDA LEVI MD 08/20/20 03:50 Consult to Mental Health [CONS] Stat Reason For Exam: "Depressive episode." 08/20/20 07:07 Consult to Physician [CONS] Routine Comment: Consulting Provider: CARYL HUNG Physician Instructions: Reason For Exam: depression,hallucination Primary care physician: FRENCH INSTRUCTOR Hospitalization Reason for admission: drug overdose Condition: Stable Hospital course: Patient is a 25-year-old male with past medical history of depression who presented to the ED following a depressive episode but the patient reported that he took 1 too many shots reportedly vodka. He also reported taking extra doses of his antidepressant medication. While he told the ER that he felt it was making "happy" he tells me that it was due to his depression but that he was not suicidal or homicidal. He states that he is feeling better would like to go home. He states that it was his roommate/friend who called 911 because she was concerned about him. In the ER poison control was notified and the patient was started on Acetadote IV orders, initial LFTs findings were within normal limits. He is awaiting psych evaluation. Alcohol intoxication, Major depression disorder Suicidal gesture although no suicidal ideation homicidal ideation reported by the patient. Hypokalemia Plan 08/21: Patient completed Acetadote as recommended no further bags per poison control. Hypokalemia has resolved. Psych input is noted and is required due to repeated pattern secondary to major depression. Patient currently is medically cleared for inpatient psych management. Patient was treated per poison control protocol Case discussed with poison control-given positive acetaminophen level with unknown time of ingestion they recommend for 21-hour treatment with Acetadote. Recommends drawing labs 3 hours prior to the completion of the third bag which includes acetaminophen level, AST, ALT and INR. They state in order to discontinue further Acetadote use the serum level should come back less than 10, AST and ALT should not be increasing and the INR should be less than 1.5 Replace electrolytes including hypokalemia [place] protocol Extensive counseling 15 minutes on need to quit alcohol use. DVT and GI prophylaxis Disposition: [id number]/[id number] PSY HOSP/PSY UNIT Final Discharge Diagnosis (Prints w/discharge instructions): Major depression disorder Time spent for discharge: 35 mins Core Measure Documentation - Palliative Care Palliative Care/ Comfort Measures: Not Applicable - Core Measures Any of the following diagnoses?: none Exam - Physical Exam Narrative exam: VITAL SIGNS: Reviewed. GENERAL: The patient appears normally developed, Vital signs as documented. HEAD: No signs of head trauma. EYES: Pupils are equal. Extraocular motions intact. EARS: Hearing grossly intact. MOUTH: Oropharynx is normal. NECK: No adenopathy, no JVD. CHEST: Chest with clear breath sounds bilaterally. No wheezes, rales, or rhonchi. CARDIAC: Regular rate and rhythm. S1 and S2, without murmurs, gallops, or rubs. VASCULAR: No Edema. Peripheral pulses normal and equal in all extremities. ABDOMEN: Soft, non tender and non distended. No rebound or guarding, and no masses palpated. Bowel Sounds normal. MUSCULOSKELETAL: Good range of motion of all major joints. Extremities without clubbing, cyanosis or edema. NEUROLOGIC EXAM: Alert and oriented x 3 No focal sensory or strength deficits. Speech normal. Follows commands. PSYCHIATRIC: Mood normal. SKIN: detail exam as documented in skin assessment - Constitutional Vitals: Temp Pulse Resp BP Pulse Ox 98.7 F 84 18 116/68 97 08/21/20 11:57 08/21/20 11:57 08/21/20 11:57 08/21/20 11:57 08/21/20 11:57 Plan Activity: advance as tolerated, fall precautions Diet: low fat Follow up with: PRIMARY CAREMD [Primary Care Provider] - 3-5 Days
[2020-08-21 16:13] VITALS: BP 134/77
--- NOTE | 2020-08-26 11:13 | Electrocardiograph Report ---
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
--- NOTE | 2020-08-26 12:37 | Electrocardiograph Report ---
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
== END 2020-08-21 18:47 ==
LOC: ED 03:21 → 4A 05:53
PROVIDERS: ADMIT Internal Medicine Geriatric Medicine; ATTEND Internal Medicine
DX: T50.901A Poisoning by unspecified drugs, medicaments and biological substances, accidental (unintentional), initial encounter (principal); R45.851 Suicidal ideations; F10.129 Alcohol abuse with intoxication, unspecified; F32.9 Major depressive disorder, single episode, unspecified; E87.6 Hypokalemia; J45.909 Unspecified asthma, uncomplicated; F41.9 Anxiety disorder, unspecified; F42.9 Obsessive-compulsive disorder, unspecified
CPT/HCPCS: 36415; 80053; 80076; 80307; 81001; 82140; 82962; 83735; 85025; 85610; 93005; 96361; 96365; 96366; 96368; 96375; 96376; 99284; G0378; J0132; J2405; J3411; J7030; J7060; J7070; 80320; G0480